=== PATIENT | female | born 1965 | race Asian ===

== ENCOUNTER 2025-04-19 06:43 | Day surgery (SDC) | payer OTHER ==
[~2025-04-19] VITALS: Ht 149.9 cm; Wt 50.0 kg
[~2025-04-19 06:43] MED LIST: AMLO-257 PO; CARB300C9 PO; CHOL200059 PO; DIVA-112 PO; ESCI-8 PO; FERR325T27 PO; LEVO50TA13 PO; LIFI1DRO5 OU; SIMV-260 PO; SODIUM CHLORIDE 0.9% 1,000 ML ONE
[2025-04-19] MEDS: SODIUM CHLORIDE 0.9% 1,000 ML IV ONE (07:39)
[2025-04-19] MEDS ORDERED: PROPOFOL 1% 20 ML VIAL IVP ONE (12:27)
[2025-04-19] MEDS ORDERED: LIDOCAINE/PF 2% 5 ML SYRINGE IVP ONE (12:27)
== END 2025-04-19 10:00 | disposition home or self-care (01) ==
LOC: SURGERY 06:43
PROVIDERS: ATTEND Surgery
DX: Z12.11 Encounter for screening for malignant neoplasm of colon (principal); D12.4 Benign neoplasm of descending colon; K63.5 Polyp of colon; K57.30 Diverticulosis of large intestine without perforation or abscess without bleeding; K64.0 First degree hemorrhoids; I10 Essential (primary) hypertension; Z79.890 Hormone replacement therapy; Z79.899 Other long term (current) drug therapy; Z90.710 Acquired absence of both cervix and uterus
CPT/HCPCS: 45385; C1769; J2704; J3490; J7030; 88305